=== PATIENT | male | born 1955 | race Two or more races ===

== ENCOUNTER → 2018-01-15 | Outpatient (CLI) | payer OTHER ==
--- NOTE | 2018-01-15 16:04 | RAD ---
EXAM: Left shoulder, 3 views. HISTORY: Pain. COMPARISON: None. FINDINGS: 3 views of the left shoulder obtained. There is no fracture, dislocation or subluxation. There is a small chronic fragmented or partially fragmented spur along the superior distal clavicle. IMPRESSION: No acute osseous finding. Minimal acromioclavicular osteoarthritis. Electronically signed by: Tequila Francois MD (01/15/2018 4:00 PM) [facility]
== END | disposition home or self-care (01) ==
LOC: DXRAD 15:38
PROVIDERS: ATTEND Family Medicine
DX: M19.012 Primary osteoarthritis, left shoulder (principal)
CPT/HCPCS: 73030